=== PATIENT | female | born 1955 | race Caucasian/White ===

== ENCOUNTER 2017-08-31 07:20 | Day surgery (SDC) | payer BC ==
[2017-08-31] MEDS ORDERED: PROPOFOL 500 MG/50 ML EMU IV ONE (07:53)
[2017-08-31 08:44] VITALS: O2SAT 94
[2017-08-31 09:06] VITALS: BP 128/82; PULSE 61; RESP 20; TEMP 97
== END 2017-08-31 09:18 | disposition home or self-care (01) ==
LOC: SURG 07:20
PROVIDERS: ATTEND Surgery
DX: Z12.11 Encounter for screening for malignant neoplasm of colon (principal); K57.30 Diverticulosis of large intestine without perforation or abscess without bleeding
CPT/HCPCS: 45378; J2704